=== PATIENT | female | born 1960 | race African-American/Black ===

== ENCOUNTER 2020-07-22 20:54 | Emergency (ER) | payer OTHER ==
[~2020-07-22] VITALS: Ht 160 cm; Wt 86.2 kg
[~2020-07-22 20:54] MED LIST: ACETAMINOPHEN650 M1 PO; ACTOS30 MG PO; BIOTIN2500 MCG PO; CALCIUM600 MG PO; CRESTOR10 MG PO; FENOFIBRATE PO; FERROUS SULFAT325 MG PO; HYDROXYZINE HCL25 MG PO; LISINOPRIL10 MG PO; MELATONIN10 M1 PO; METFORMIN HCL500 MG PO; NICODERM CQ1 EAC1 TOP; TACLONEX OINTME60 GM TOP; VITAMIN E400 UNI2 PO
[2020-07-22] MEDS ORDERED: KETOROLAC TROMETHAMINE 30 MG/ML VIAL IV STA ×2 (21:01→23:23)
[2020-07-22] MEDS ORDERED: PANTOPRAZOLE 40 MG 10ML VIAL IV STA (21:01)
[2020-07-22] MEDS ORDERED: ONDANSETRON HCL INJ 2MG/ML 2ML 2 MG/ML VIAL IV STA ×2 (21:01→21:15)
[2020-07-22 21:37] LABS: BASOPHILS % 0.2 % (0.0-1.0); EOSINOPHILS % 0.1 % (0.0-6.0); HEMATOCRIT 35.6 % (34.2-44.1); HEMOGLOBIN 11.7 g/dL (12.0-16.0); LYMPHOCYTES # (AUTO) 2.4 (1.0-3.2); LYMPHOCYTES % 16.8 % (18.0-39.1); MEAN CORPUSCULAR HEMOGLOBIN 29.5 pg (28-32); MEAN CORPUSCULAR HGB CONC 32.9 g/dL (31-35); MEAN CORPUSCULAR VOLUME 89.7 fL (81-99); MONOCYTES # (AUTO) 0.7 (0.2-0.8); MONOCYTES % 5.2 % (4.4-11.3); NEUTROPHILS # (AUTO) 11.1 (2.1-6.9); NEUTROPHILS % 77.3 % (38.7-80.0); PLATELET COUNT 268 x10e3/uL (140-360); RED BLOOD COUNT 3.97 x10e6/uL (3.6-5.1); RED CELL DISTRIBUTION WIDTH 12.9 % (11.7-14.4)
[2020-07-22 21:38] LABS: CLARITY,URINE SL CLOUDY (CLEAR); COLOR,URINE YELLOW (YELLOW); KETONES,URINE TRACE (NEGATIVE); LEUKOCYTE ESTERASE ,URINE NEGATIVE (NEGATIVE); NITRITE,URINE POSITIVE (NEGATIVE); PROTEIN,URINE DIPSTICK >=300 (NEGATIVE); URINE UROBILINOGEN 0.2 mg/dL (0.2 - 1)
[2020-07-22 21:51] LABS: BACTERIA,URINE MANY /HPF; EPITHELIAL CELLS,URINE FEW /LPF; RBC,URINE 0-5 /HPF (0-5)
[2020-07-22 21:59] LABS: ALANINE AMINOTRANSFERASE 35 IU/L (0-55); ALBUMIN 4.1 g/dL (3.5-5.0); ALBUMIN/GLOBULIN RATIO 1.1 (0.8-2.0); ALKALINE PHOSPHATASE 53 IU/L (40-150); BLOOD UREA NITROGEN 12 mg/dL (7-26); BUN/CREATININE RATIO 11 (6-25); CALCIUM 9.7 mg/dL (8.4-10.2); CARBON DIOXIDE 23 mmol/L (22-29); CHLORIDE 107 mmol/L (98-107); CREATINE KINASE 158 IU/L (29-168); CREATININE, SERUM 1.09 mg/dL (0.57-1.11); EST GLOMERULAR FILTRATION RATE > 60 ML/MIN (60-); GLUCOSE 169 mg/dL (74-118); SODIUM 143 mmol/L (136-145)
[2020-07-22] MEDS ORDERED: ACETAMIN/BUTALBITAL/CAFFEINE TAB PO ONE (23:30)
[2020-07-22] MEDS ORDERED: DIPHENHYDRAMINE HCL INJ 50 MG/ML VIAL IV ONE (23:30)
[2020-07-22] MEDS ORDERED: CEFTRIAXONE SOD 1 GM/50 ML BAG IV ONE (23:45)
[2020-07-22] MEDS ORDERED: CEFTRIAXONE SOD 1 GM in SODIUM CHLORIDE 0.9% 50ML 50 ML IV ONE (23:45)
[2020-07-23 00:39] VITALS: BP 138/85
== END 2020-07-23 00:45 | disposition home or self-care (01) ==
LOC: ER 21:01
DX: G43.909 Migraine, unspecified, not intractable, without status migrainosus (principal); N39.0 Urinary tract infection, site not specified; I10 Essential (primary) hypertension; E78.5 Hyperlipidemia, unspecified; E11.65 Type 2 diabetes mellitus with hyperglycemia; K21.9 Gastro-esophageal reflux disease without esophagitis; L40.9 Psoriasis, unspecified; Z87.19 Personal history of other diseases of the digestive system; Z86.73 Personal history of transient ischemic attack (TIA), and cerebral infarction without residual deficits
CPT/HCPCS: 36415; 70450; 80053; 81001; 82550; 82553; 84484; 85025; 99284; J0696; J1200; J1885; J2405; 93005

== ENCOUNTER 2020-12-27 10:14 | Emergency (ER) | payer OTHER ==
[~2020-12-27] VITALS: Ht 160 cm; Wt 86.2 kg
[2020-12-27] MEDS ORDERED: SODIUM CHLORIDE 0.9% 1000ML 1,000 ML IV STA (10:44)
[2020-12-27] MEDS ORDERED: ONDANSETRON HCL INJ 2MG/ML 2ML 2 MG/ML VIAL IV STA (10:44)
[2020-12-27] MEDS ORDERED: ACETAMINOPHEN 325 MG TAB PO ONE (10:45)
[2020-12-27 11:12] LABS: HEMATOCRIT 39.2 % (34.2-44.1); HEMOGLOBIN 12.6 g/dL (12.0-16.0); LYMPHOCYTES # (AUTO) 1.2 (1.0-3.2); LYMPHOCYTES % 26.4 % (18.0-39.1); MEAN CORPUSCULAR HEMOGLOBIN 28.7 pg (28-32); MEAN CORPUSCULAR HGB CONC 32.1 g/dL (31-35); MEAN CORPUSCULAR VOLUME 89.3 fL (81-99); MONOCYTES # (AUTO) 0.4 (0.2-0.8); MONOCYTES % 9.2 % (4.4-11.3); NEUTROPHILS % 64.2 % (38.7-80.0); PLATELET COUNT 170 x10e3/uL (140-360); RED BLOOD COUNT 4.39 x10e6/uL (3.6-5.1); RED CELL DISTRIBUTION WIDTH 12.9 % (11.7-14.4)
[2020-12-27] MEDS ORDERED: HYDROCODONE/APAP 5MG-325MG TAB PO ONE (11:30)
[2020-12-27 11:32] LABS: ALBUMIN 3.7 g/dL (3.5-5.0); ALBUMIN/GLOBULIN RATIO 0.9 (0.8-2.0); ANION GAP 17.2 mmol/L (8-16); CALCIUM 9.2 mg/dL (8.4-10.2); CREATININE, SERUM 1.03 mg/dL (0.57-1.11); POTASSIUM 4.2 mmol/L (3.5-5.1)
[2020-12-27 11:38] LABS: CREATINE KINASE MB 1.5 ng/mL (0-5.0)
[2020-12-27 12:43] LABS: INR 1.01; PROTHROMBIN TIME 13.5 seconds (11.9-14.5)
[2020-12-27 12:44] LABS: PARTIAL THROMBOPLASTIN TIME 28.5 seconds (23.8-35.5)
[2020-12-27 13:50] VITALS: BP 111/76
[2020-12-27 16:26] LABS: BAND NEUTROPHILS % (MANUAL) 1 %; LYMPHOCYTES % (MANUAL) 30 % (19-48); MONOCYTES % (MANUAL) 6 % (3.4-9.0); NEUTROPHILS % (MANUAL) 58 % (40-74); PLATELET ESTIMATE ADEQUATE; PLATELET MORPHOLOGY COMMENT NORMAL
== END 2020-12-27 13:53 | disposition home or self-care (01) ==
LOC: ER 10:53
DX: U07.1 COVID-19 (principal); R06.00 Dyspnea, unspecified; R05 Cough; I10 Essential (primary) hypertension; E11.65 Type 2 diabetes mellitus with hyperglycemia; E78.5 Hyperlipidemia, unspecified; L40.9 Psoriasis, unspecified; K74.60 Unspecified cirrhosis of liver
CPT/HCPCS: 36415; 71045; 80053; 82550; 82553; 83880; 84484; 85025; 85379; 85610; 85730; 93005; 99284; J2405; J7030

== ENCOUNTER 2022-06-18 10:40 | Emergency (ER) | payer OTHER ==
[~2022-06-18] VITALS: Ht 160 cm; Wt 91.9 kg
[2022-06-18] MEDS ORDERED: ACETAMINOPHEN-1 EAC4 (11:17)
[2022-06-18] MEDS ORDERED: PANTOPRAZOLE SO40 MG PO (11:17)
[2022-06-18] MEDS ORDERED: LEXAPRO5 MG PO (11:17)
[2022-06-18] MEDS ORDERED: ASPIRIN EC81 MG PO (11:17)
[2022-06-18] MEDS ORDERED: GABAPENTIN300 MG PO (11:17)
[2022-06-18] MEDS ORDERED: HYDROCHLOROTHIA25 MG PO (11:46)
[2022-06-18] MEDS ORDERED: [UNRECOGNIZED DRUG - OTHER] (11:48)
[2022-06-18] MEDS ORDERED: OZEMPIC0.25 MG/0. SC (11:48)
== END 2022-06-18 11:58 | disposition home or self-care (01) ==
LOC: FSED 10:56
DX: I10 Essential (primary) hypertension (principal); D64.9 Anemia, unspecified
CPT/HCPCS: 80053; 85025; 99283